=== PATIENT | male | born 1975 | race Caucasian/White ===

== ENCOUNTER 2017-08-10 08:21 | Day surgery (SDC) | payer BC, OTHER ==
[~2017-08-10] VITALS: Ht 180.3 cm; Wt 105.7 kg
[~2017-08-10 08:21] MED LIST: CYCL10 PO; Cyclobenzaprine5 MG PO; ESOM20; HYDACE5325 PO; IBUP800 PO; Keflex500 MG PO; METPRE4DP PO; MUSCLE RELAXER; Mobic15 MG PO; NAPR220 PO; Naprosyn500 MG PO; Norco 5-325 Ta1 EACH PO; OMEP20ER PO; OXYACE5T PO; Percocet 5-3251 EACH PO; TRAM50 PO; Veetids 500500 MG PO; [UNRECOGNIZED DRUG - REMARK]
[2017-08-10] MEDS ORDERED: ESOM20 (08:50)
[2017-08-10] MEDS ORDERED: IBUP100S (08:51)
== END 2017-08-10 10:27 | disposition home or self-care (01) ==
LOC: ORSCSDS 08:21
PROVIDERS: Internal Medicine Gastroenterology
PROC: 0DB58ZX Excision of Esophagus, Via Natural or Artificial Opening Endoscopic, Diagnostic (ICD-10-PCS; principal; 2017-08-10 10:00)
PROC: 0DB68ZX Excision of Stomach, Via Natural or Artificial Opening Endoscopic, Diagnostic (ICD-10-PCS; principal; 2017-08-10 10:00)
DX: K21.9 Gastro-esophageal reflux disease without esophagitis (principal); B37.81 Candidal esophagitis; K31.7 Polyp of stomach and duodenum; Z79.899 Other long term (current) drug therapy
CPT/HCPCS: 88305

== ENCOUNTER 2021-02-04 06:05 | Day surgery (SDC) | payer BC ==
[~2021-02-04] VITALS: Ht 180.3 cm; Wt 96.8 kg
[~2021-02-04 06:05] MED LIST changes: +Adipex-P37.5 MG PO; +DEPO-TESTO200 MG/13 IM; +IBUP100S; +ZOLP5 PO
--- NOTE | 2021-02-04 11:26 | NUR ---
PT SOTOMAYOR X 4 p PROCEDURE. ADB GAUZE AND OPSITE X 3, DRESSING CDI. PT DENIES NAUSEA. MINIMAL PAIN, MEDICATED c NORCO 1 TAB PO. TOLERATES PO FLUIDS AND FOOD s DIFFICULTY. CONTINUES TO DENY NAUSEA p FOOD/DRINK. GIVEN DC INSTRUCTIONS. VERBALIZES AN UNDERSTANDING s QUESTIONS. IV DC'D, CATH INTACT AND PRESSURE DRESSING APPLIED. MARCOS PAIN p MEDS. PT DRESSES SELF s DIFFICULTY. DRESSING CONTINUES TO BE CDI X 3. GIVEN PAPERWORK, TRANSFERS TO BY SELF. OTD IN NAD VIA TO , ESCORTED BY KATELYN.
== END 2021-02-04 12:00 | disposition home or self-care (01) ==
LOC: ORSCMMR 06:05 → ORD 14:00
PROVIDERS: Surgery
PROC: 8E0W4CZ Robotic Assisted Procedure of Trunk Region, Percutaneous Endoscopic Approach (ICD-10-PCS; principal; 2021-02-04 07:30)
PROC: 0YUA4JZ Supplement Bilateral Inguinal Region with Synthetic Substitute, Percutaneous Endoscopic Approach (ICD-10-PCS; principal; 2021-02-04 07:30)
DX: K40.20 Bilateral inguinal hernia, without obstruction or gangrene, not specified as recurrent (principal); K21.9 Gastro-esophageal reflux disease without esophagitis; Z79.899 Other long term (current) drug therapy
CPT/HCPCS: 49650; S2900; A9270; C1781; J0690; J1100; J1885; J2250; J2405; J2704; J2765; J3010; J7120

== ENCOUNTER 2024-09-29 06:33 | Day surgery (SDC) | payer BC ==
[~2024-09-29] VITALS: Ht 180.3 cm; Wt 103.9 kg
[2024-09-29] VITALS (24 sets, daily range): BP systolic 97–141; BP diastolic 65–110
[~2024-09-29 06:33] MED LIST changes: +Lactated Ringer's 1,000 ML IV SCH
[2024-09-29] MEDS ORDERED: DOXE10 PO (06:59)
[2024-09-29] MEDS ORDERED: Ondansetron HCl 2 MG / ML 2ML Vial ONE (07:02)
[2024-09-29] MEDS ORDERED: propofoL 60 ML IV ONE (07:03)
[2024-09-29] MEDS ORDERED: Benzocaine Oral Spray 0.5ML UD ONE (07:03)
--- NOTE | 2024-09-29 07:29 | NUR ---
Ambulatory in Day SurgeryPre-Op teaching done. Pt verbalizes understanding. History, Chart, Medications and Allergies reviewed before start of procedure.Patient confirms NPO status and agrees with scheduled surgery. Patient States Post-Procedure ride home has been arranged.
[2024-09-29] MEDS ORDERED: Midazolam HCl 1MG / ML 2ML Vial ONE (07:36)
--- NOTE | 2024-09-29 07:46 | NUR ---
09/29/24 0746 Yoan Patterson CONFIRMED AND REVIEWED H&P, MEDCICATIONS, ALLERGIES, MEDICAL HISTORY, RESPIRATORY HISTORY, VITAL SIGNS, 3-LEAD EKG, CONSENTS, AND PHYSICIAN ORDERS. PATIENT CONFIRMS NPO STATUS AND AGREES WITH SCHEDULED PROCEDURE. MONITOR INTACT WITH CONTINUOUS PULSE OXIMETRY, CAPNOGRAPHY, 3-LEAD EKG, INTERMITTENT BP. SUPPLEMENTAL O2 TO BE TITRATED THROUGHOUT PROCEDURE TO MAINTAIN O2 SATURATION ABOVE 90%. PATIENT DETERMINED TO BE ASA APPROPRIATE FOR PROPOFOL SEDATION PRIOR TO START OF PROCEDURE BY DR. FERNANDEZ. Bite Block Placed. HURRICAINE SPRAY TO OROPHARYX. DR FERNANDEZ MADE AWARE OF OUTPATIENT HEART MONITOR IN PLACE [facility] STOP BANG SCORE OF 7. OKAY TO PROCEDE PER DR. FERNANDEZ.
--- NOTE | 2024-09-29 08:48 | NUR ---
Patient up to Ambulate independently. Gait steady. Discharge instructions reviewed with patient. Patient verbalizes understanding. Copy given to patient to take home, [facility]. Patient States Post-Procedure ride home has been arranged. Discharged via wheelchair to private car for ride home. PT REPORTS READY TO GO HOME. PT TOLERATING PO.
== END 2024-09-29 08:49 | disposition home or self-care (01) ==
LOC: ORSCMMR 06:33 → ORD 07:30 → ORSCMMR 08:49
PROVIDERS: Internal Medicine Gastroenterology
PROC: 0DBL8ZX Excision of Transverse Colon, Via Natural or Artificial Opening Endoscopic, Diagnostic (ICD-10-PCS; principal; 2024-09-29 07:30)
PROC: 0DB48ZX Excision of Esophagogastric Junction, Via Natural or Artificial Opening Endoscopic, Diagnostic (ICD-10-PCS; principal; 2024-09-29 07:30)
PROC: 0DB58ZX Excision of Esophagus, Via Natural or Artificial Opening Endoscopic, Diagnostic (ICD-10-PCS; principal; 2024-09-29 07:30)
DX: Z12.11 Encounter for screening for malignant neoplasm of colon (principal); K21.9 Gastro-esophageal reflux disease without esophagitis; D12.3 Benign neoplasm of transverse colon; K44.9 Diaphragmatic hernia without obstruction or gangrene
CPT/HCPCS: 88305; A9270; J2250; J2405; J2704; J7120